=== PATIENT | female | born 1965 | race African-American/Black ===

== ENCOUNTER 2017-04-06 06:12 | Emergency (ER) | payer OTHER ==
[~2017-04-06] VITALS: Ht 160 cm; Wt 61.5 kg
[2017-04-06 06:15] VITALS: Ht 160 cm; Wt 61.5 kg
[2017-04-06] MEDS ORDERED: KETOROLAC 60 MG INJ IM STA (07:23)
[2017-04-06] MEDS ORDERED: IBUPROFEN 600 MG TAB PO ONE (07:30)
--- NOTE | 2017-04-06 07:59 | RADRPT ---
PROCEDURE: Left hand series CLINICAL INDICATION: Left second finger swelling TECHNIQUE: AP, oblique and lateral views of the left hand were obtained. COMPARISON: No prior studies are available for comparison. FINDINGS: There is a ring on the patient's left fourth finger. There are no acute fractures, dislocations or erosions. The bony mineralization is normal without focal bony blastic or lytic lesions. No other radiodense foreign bodies. The soft tissues are unremarkable. IMPRESSION: No evidence acute fractures dislocations or erosions. RPTAT:AAJJ Physician Bre Date Time Electronically viewed and signed by Jose aDniel Physician on 04/06/2017 07:59 BM/
[2017-04-06] MEDS ORDERED: NAPR-260 PO (08:37)
--- NOTE | 2017-04-06 15:49 | ERD ---
ER Documentation Chief Complaint Date/Time DATE: 04/06/17 TIME: 15:46 Chief Complaint left hand pain x 2 days, denies injury HPI 52-year-old female patient with no significant past medical history presents to the ED complaining of left index finger swelling that started 2 days ago. Denies any injuries or trauma. Denies any heavy lifting. Reports that she is right-handed. States that it is tender at the joint region. Denies any loss of sensation, loss of range of motion, weakness, numbness or tingling, fever, chills, nausea, vomiting. ROS All systems reviewed and are negative except as per history of present illness. Medications Home Meds Active Scripts Naproxen* (Naprosyn*) 500 Mg Tablet, 500 MG PO BID Y for PAIN AND/OR INFLAMMATION, #30 TAB Prov:BIRDIE FRANCO PA-C 04/06/17 Allergies Allergies: Coded Allergies: No Known Allergy (Unverified , 04/06/17) PMhx/Soc History of Surgery: No Anesthesia Reaction: No Hx Neurological Disorder: No Hx Respiratory Disorders: No Hx Cardiac Disorders: No Hx Psychiatric Problems: No Hx Miscellaneous Medical Probl: No Hx Alcohol Use: No Hx Substance Use: No Hx Tobacco Use: No Physical Exam Vitals Vital Signs Date Time Temp Pulse Resp B/P Pulse Ox O2 Delivery O2 Flow Rate FiO2 04/06/17 06:15 98.7 75 20 175/91 100 Physical Exam Const: [id number], well-nourished. In no acute distress. Head: Atraumatic, normocephalic Eyes: Normal Conjunctiva without injection ENT: Normal external ear, nose and mouth. Neck: Full range of motion. No meningismus. Resp: Clear to auscultation bilaterally. No wheezing, rhonchi, rales, or crackles. No accessory muscle use. No retractions. Cardio: Regular rate and rhythm, no murmurs Skin: No petechiae or rashes Back: No midline tenderness. No CVA tenderness. Ext: No cyanosis, or edema. Cap refill less than 2 seconds. Distal pulses intact bilaterally. Tenderness to palpation of the left index PIP joint space with slight edema and erythema surrounding the left index finger. No induration or fluctuance. Full range of motion of PIP, DIP, MCP joints. Neur: Awake and alert. Normal gait and coordination. Muscle strength 5/5. Sensation intact bilaterally. Psych: Normal Mood and Affect Results 24 hrs Current Medications Medications (Trade) Dose Ordered Sig/Janeth Route PRN Reason Start Time Stop Time Status Last Admin Dose Admin Ibuprofen (Motrin) 600 mg ONCE ONCE PO 04/06/17 07:30 04/06/17 07:31 Cancel Ketorolac Tromethamine (Toradol) 60 mg ONCE STAT IM 04/06/17 07:23 04/06/17 07:33 DC 04/06/17 07:42 Procedures/MDM 52-year-old female patient with no significant past medical history presents the ED complaining of left index finger pain that started 2 days ago. Patient is afebrile and nontoxic-appearing. Patient has normal vital signs. A left hand x-ray was ordered to further evaluate patient. Dr. Dillard, my supervising physician, also evaluated patient at this time and stated that there is low suspicion for flexor tenosynovitis. Stated that since patient mainly had pain at the joint space instead of the flexor tendon, patient symptoms are likely due to arthritis. Patient is neurovascularly intact. Patient's extremity symptoms have stabilized while they have been evaluated in the department and are appropriate for outpatient follow up. No evidence of fractures, dislocations , compartment syndrome, neurologic injury, vascular injury, open joint, open fracture, tendon laceration, septic arthritis, osteomyelitis, DVT, foreign body , or other emergent conditions. Discharge medications: Naproxen Follow up with primary care physician in 1-2 days for further evaluation with a drafting engineer/orthopedic physician. Instructed patient to return to the ED sooner for any worsening symptoms. Patient's questions were answered. Patient understood and agreed with discharge plan. Patient discharged stable. Departure Diagnosis: Primary Impression: Pain of finger of left hand Condition: Stable Patient Instructions: Finger Contusion, Sprain Finger Referrals: COMMUNITY CLINICS YOU HAVE RECEIVED A MEDICAL SCREENING EXAM AND THE RESULTS INDICATE THAT YOU DO NOT HAVE A CONDITION THAT REQUIRES URGENT TREATMENT IN THE EMERGENCY DEPARTMENT. FURTHER EVALUATION AND TREATMENT OF YOUR CONDITION CAN WAIT UNTIL YOU ARE SEEN IN YOUR DOCTORS OFFICE WITHIN THE NEXT 1-2 DAYS. IT IS YOUR RESPONSIBILITY TO MAKE AN APPOINTMENT FOR FOLOW-UP CARE. IF YOU HAVE A PRIMARY DOCTOR --you should call your primary doctor and schedule an appointment IF YOU DO NOT HAVE A PRIMARY DOCTOR YOU CAN CALL OUR PHYSICIAN REFERRAL HOTLINE AT IF YOU CAN NOT AFFORD TO SEE A PHYSICIAN YOU CAN CHOSE FROM THE FOLLOWING [facility] [address] [facility] [address] [facility] [facility] [address] [facility] [address] [facility] [address] [facility]. [facility] [address] [facility]. [facility] YOU HAVE RECEIVED A MEDICAL SCREENING EXAM AND THE RESULTS INDICATE THAT YOU DO NOT HAVE A CONDITION THAT REQUIRES URGENT TREATMENT IN THE EMERGENCY DEPARTMENT. FURTHER EVALUATION AND TREATMENT OF YOUR CONDITION CAN WAIT UNTIL YOU ARE SEEN IN YOUR DOCTORS OFFICE WITHIN THE NEXT 1-2 DAYS. IT IS YOUR RESPONSIBILITY TO MAKE AN APPOINTMENT FOR FOLOW-UP CARE. IF YOU HAVE A PRIMARY DOCTOR --you should call your primary doctor and schedule and appointment IF YOU DO NOT HAVE A PRIMARY DOCTOR YOU CAN CALL OUR PHYSICIAN REFERRAL HOTLINE AT . IF YOU CAN NOT AFFORD TO SEE A PHYSICIAN YOU CAN CHOSE FROM THE FOLLOWING [facility]: [facility] [address] [place] [address] [facility] [address] [place] [address] [facility] [address] [place] [address] [facility] URGENT C[facility]/SPECIAL[facility]IES [facility] Additional Instructions: Call your primary care doctor TOMORROW for an appointment during the next 1-2 days for a referral to a orthopedic physician/rheumatolgist. See the doctor sooner or return here if your condition worsens before your appointment time - fever, weakness. BIRDIE FRANCO PA-C Apr 06, 2017 15:49
== END 2017-04-06 08:44 | disposition home or self-care (01) ==
LOC: FTE 06:12
DX: M79.645 Pain in left finger(s) (principal)
CPT/HCPCS: 73130; 96372; J1885; Z7502